=== PATIENT | female | born 1955 | race Caucasian/White ===

== ENCOUNTER → 2025-05-13 10:40 | Outpatient (REF) | payer MEDICARE, OTHER, SELFPAY | LOC: RAD 10:40 | PROVIDERS: ATTENDING PHYSICIAN Student in an Organized Health Care Education/Training Program; FAMILY PHYSICIAN Family Medicine | DX: R05.9 Cough, unspecified (principal) | CPT/HCPCS: 71046 ==

== ENCOUNTER → 2025-05-24 12:55 | Outpatient (REF) | payer MEDICARE, OTHER, SELFPAY | LOC: RAD 12:55 | PROVIDERS: ATTENDING PHYSICIAN Student in an Organized Health Care Education/Training Program | DX: R05.1 Acute cough (principal) | CPT/HCPCS: 71046 ==

== ENCOUNTER 2025-05-28 16:09 | Inpatient (IN) | payer MEDICARE, OTHER, SELFPAY ==
[2025-05-26] VITALS (9 sets, daily range): BP systolic 102–158; BP diastolic 61–127
[2025-05-26 13:03] LABS: Hematocrit 42.0 % (37.0-47.0); Hemoglobin 13.8 g/dL (12.0-16.0); Mean Corp Hgb Conc. 32.9 g/dL (33.0-37.0); Mean Corpuscular Volume 91.9 fL (81.0-99.0); Nucleated Red Blood Cells % 0 %; Platelet Count 236 10^3/uL (130-400); Red Cell Dist. Width 13.6 % (11.5-14.5)
[2025-05-26 13:19] LABS: ALT (SGPT) 497 U/L (0-35); AST (SGOT) 96 U/L (14-36); Albumin 4.5 g/dl (3.5-5.0); Alkaline Phosphatase 83 U/L (38-126); Blood Urea Nitrogen 32 mg/dl (7-17); Calcium 9.7 mg/dl (8.4-10.2); Carbon Dioxide 26 mmol/L (22-30); Chloride 107 mmol/L (98-107); Glucose 88 mg/dl (70-99); Lipase 338 U/L (23-300); Potassium 5.2 mmol/L (3.5-5.1); Sodium 139 mmol/L (135-145); Total Protein 7.3 g/dl (6.3-8.2); eGFR > 60.00
--- NOTE | 2025-05-26 14:40 | ED.GENMED ---
History of Present Illness
General
Chief Complaint: Abnormal Lab Value
Source: patient
Exam Limitations: none
Time Seen by Provider: 05/26/25 14:28
Nursing documentation reviewed up to this point in time: agreed with
History of Present Illness
History of Present Illness:
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 Her main complaint is that she has been having what she describes as
'attacks' where she has what sounds like bronchospasm where she feels short of breath, coughing/wheezing occasionally to the point that she will briefly pass out. She said she was seen by her primary doctor and was prescribed steroids x 2 packs as
well as antibiotics and had outpatient x-ray�the feeling was that she could potentially have bronchitis. She has not noticed any improvement in her symptoms with these treatments. She finished steroids 2 days ago and is still finishing up a second
antibiotic course. In addition to these attacks as above she reports that over the past 2 weeks she has been having pains in the epigastrium associated with nausea, hypersalivation and occasional dry heaves. She saw her primary doctor in follow-up
and had lab work drawn which showed that her LFTs had increased and ultimately was referred to the ER to be further evaluated.
Review of Systems
Review of Systems
All Other Systems: ROS reviewed and negative except as documented in HPI and ROS
Constitutional: Denies fever
EENT: Reports other (Hypersalivation); Denies sore throat or runny nose
Respiratory: Reports cough and trouble breathing
Cardiac: Denies chest pain
ABD/GI: Reports abdominal pain and nausea; Denies vomiting or constipated
: Denies flank pain
Musculoskeletal: Denies neck pain or back pain
Neurological: Denies dizzy or headache
Phy Exam
Physical Exam
Physical Exam:
General: Awake, alert, oriented x3; no acute distress
Head: Normocephalic, atraumatic
Eyes: Conjunctiva normal, sclera anicteric
Throat: Airway intact, handling secretions
Neck: Trachea midline, supple without meningismus
Lungs: Scattered expiratory wheezing, patient did have a coughing fit during lung auscultation
Heart: Regular rate and rhythm, no murmurs, gallops, or rubs
Abd: Soft, non distended, nontender
Neuro: No gross deficits
Extremities: No edema in extremities, equal pulses in all extremities
Scores
Heart Failure Risk
Heart Failure Risk Score: Not Applicable
Heart Score for Chest Pain Patients
STEMI patient?: Not applicable
Withdrawal Assessment of Alcohol
Withdrawal Assessment Completed?: Not applicable
Course
Orders/Labs/Results
Orders:
Orders
05/26/25 12:56
Complete Blood Count/With Diff Urgent
Comprehensive Metabolic Panel Urgent
Lipase Urgent
05/26/25 14:37
US Abdomen Complete/Upper Urgent
Comment:
Reason For Exam: epigastric pain, abnormal LFTs
05/26/25 14:47
Electrocardiogram (*1) Urgent
Reason for Study: Abdominal Pain
EKG- Treatment ONCE
05/26/25 15:00
Troponin I Urgent
Abnormal Lab Results
05/26/25
12:56
WBC 12.1 H 10^3/uL
(4.8-10.8)
MCHC 32.9 L g/dL
(33.0-37.0)
Abs Immat Gran (auto) 0.2 H 10^3/uL
(0-0.05)
Absolute Neuts (auto) 7.3 H 10^3/uL
(1.4-6.5)
Absolute Monos (auto) 1.1 H 10^3/uL
(0.1-0.6)
Immature Gran % 1.8 H %
(0-0.5)
Potassium 5.2 H mmol/L
(3.5-5.1)
BUN 32 H mg/dl
(7-17)
AST 96 H U/L
(14-36)
ALT 497 H U/L
(0-35)
Lipase 338 H U/L
(23-300)
05/26/25 12:56
05/26/25 12:56
Vital Signs
Initial and Last Documented VS:
Initial Vital Signs
Temp Pulse Resp BP Pulse Ox
36.9 C 71 18 158/98 98
05/26/25 12:49 05/26/25 12:49 05/26/25 12:49 05/26/25 12:49 05/26/25 12:49
Last Documented Vital Signs
Temp Pulse Resp BP Pulse Ox
36.9 C 58 20 127/87 100
05/26/25 12:49 05/26/25 15:15 05/26/25 15:15 05/26/25 14:51 05/26/25 14:52
MDM/Problems Addressed
Differential Diagnosis Includes:
Cough/shortness of breath: Asthma, bronchitis, pneumonia, bronchospasm or laryngeal spasm
Epigastric pain/nausea/abnormal LFTs: Cholelithiasis, cholecystitis, pancreatitis, gastritis
MDM/Problems Addressed:
70-year-old female presents with multiple complaints as above�has been dealing with coughing/bronchospasm which she says comes in fits/waves. Has also had some epigastric pain and recently discovered to have abnormal LFTs; associated nausea with
hypersalivation. Labs sent off including a CBC which shows a leukocytosis of 12.2. CMP shows elevated AST and ALT as well as marginally elevated lipase. Will plan to check upper abdominal ultrasound. Patient reports to chest x-rays in the past
week that were nondiagnostic�hold on repeat at this point; I did review chest x-ray from 05/24 which showed no acute abnormalities. She may have either cholelithiasis or cholecystitis versus GERD/gastritis--she may be having reflux-type symptoms
causing bronchospasm/laryngeal spasm or could potentially be having diaphragmatic irritation/spasm. Could also have significant bronchitis and abnormal LFTs with reflux symptoms related to recent heavy steroid use. Will monitor closely reassess
after the above.
Ultrasound shows normal gallbladder wall thickness, no dilation of the CBD, no clear gallstones. Reassessment patient still having epigastric pain and with abnormal LFTs concern potentially for choledocholithiasis. Will need LFTs trended may need
MRCP or GI consultation. Continues to have paroxysmal respiratory symptoms but I do suspect that these may improve with treating GI symptoms. Will admit for continued monitoring and evaluation. Discussed case with the hospitalist.
Acute Exacerbation and/or Progression of Chronic Illness:
Acutely hypertensive
Acute Exacerbation and/or Progression of Chronic Illness: HTN
*Radiology
Radiology exam reviewed: radiology read reviewed
*Pulse Oximetry
SaO2: 98
Oxygen Mode of Delivery: Room air
Patient hypoxic: no (98%)
*Critical Care Note
Total Time (30-74mins, 75-104mins- exclusive of procedures): Not Applicable
Data Reviewed
Source: patient
Patient Management
Discussion with other providers: Hospitalist (Discussed with hospitalist)
Escalation/DeEscalation of care consider admission/obs:
Admission indicated
ED Attending Note
-
Portions of this chart may have been created with voice recognition software.� Occasional wrong word or��sound alike� substitutions may have occurred due to the inherent limitations of voice recognition software.
Discharge Plan
Departure
Patient Disposition: Admit
Date of Disposition: 05/26/25
Time of Disposition: 15:50
Admit to doctor: Dulce
Presentation/result/management discussed w/ accepting MD/DO: Hospitalist
Discharge Problem:
Bronchospasm, Abnormal LFTs, Epigastric pain
Interventions
Interventions:
*Risk Screen - Suicide Last Done: 05/26/25 12:49
*General Assessment Last Done: 05/26/25 12:49
*Neglect/Abuse Screening Last Done: 05/26/25 12:49
*ED- Fall Risk Assessment Last Done: 05/26/25 12:49
*ED COVID-19 Vaccine History Last Done: 05/26/25 12:49
Discharge Date and Time
Print Language: NEPALI
[2025-05-26 15:46] LABS: Troponin I < 0.012 ng/ml
--- NOTE | 2025-05-26 17:02 | HPS.HSE ---
Family Physician
-
Family Physician:
Chief Complaint
-
Persistent coughing
History of Present Illness
70-year-old female no significant past medical history is presenting from home with complaints of attacks where coughing starts and then she is unable to to breathe at times. Patient feels like she will pass out after having coughing episodes.
Patient symptoms started 3 weeks ago had fever at home. Went to see primary doctor who thought patient had pneumonia and was prescribed antibiotics likely doxycycline and steroids. Patient with not much improvement in symptomology went back to see
again primary doctor was given additional steroids and breathing treatment. Patient returned to the primary doctor as patient with persistent episodes of coughing with intermittent spasms and unable to breathe out. Also states of hypersalivation
persistently. States the nausea but no vomiting. No diarrhea. Patient also had a chest x-ray done as outpatient. Patient states of soreness in the epigastric region sometimes radiate to bilateral sides. Denies any right upper quadrant
abdominal pain after having meals. Also feeling lightheaded at times. States she is feeling extremely weak. States of increasing hypersalivation and using 3-4 towels because of it. Unable to sleep at night. Patient went to see primary doctor
again and had repeat blood work as outpatient where she was found to have mild AST and ALT elevation was recommended coming to the ER.
Medical History
Past Medical History
Past Medical History: Reports None
Past Surgical History: Reports Other
Additional Past Surgical History:
Right kidney donation
Social History
Tobacco: Non-smoker
Alcohol: Occasional
Drug: None
Employment: Employed
Family History
Family History: Not pertinent
Allergies / Home Medications
Allergies reflects when Allergies were last updated in [employer]
Home Medications with original date entered in [employer]
Allergy/Medication List:
Allergies
Allergy/AdvReac Type Severity Reaction Status Date / Time
NKA - No Known Allergies Allergy Unknown Uncoded 05/26/25 12:53
Review of Systems
-
History Source: Patient
A 12 point ROS was completed and negative except as noted: Yes
Physical Exam
Vital Signs
Vital Signs
Temp Pulse Resp BP Pulse Ox
98.5 F 67 25 123/80 96
05/26/25 12:49 05/26/25 17:00 05/26/25 17:00 05/26/25 16:25 05/26/25 17:00
Physical Exam
General: Well Developed, Well Nourished and No Apparent Distress
HEENT: NormoCephalic, Moist mucous membranes and Atraumatic
Respiratory: Wheezes
Cardiac: S1/S2 and Regular Rhythm; No Murmur or Rub
GI: Soft, Non Tender, Non Distended and Normal Bowel Sounds; No Organomegaly
Rectal: Deferred by Provider
Musculoskeletal: No Clubbing, No Cyanosis and No Edema
Skin: No Rash
Neuro: Awake, Alert, Oriented, AO x 3, No Motor Deficits and Nonfocal/grossly intact
Psych: Calm
Laboratory Results
-
05/26/25 12:56
05/26/25 12:56
Laboratory Results
Total Bilirubin 0.7 mg/dl (0.2-1.3) 05/26/25 12:56
AST 96 U/L (14-36) H 05/26/25 12:56
ALT 497 U/L (0-35) H 05/26/25 12:56
Alkaline Phosphatase 83 U/L (38-126) 05/26/25 12:56
Troponin I < 0.012 ng/ml 05/26/25 15:00
Lipase 338 U/L (23-300) H 05/26/25 12:56
Data Reviewed
-
Ultrasound: Report Reviewed by me (Gallbladder physiologically distended with fluid and no shadowing calculi or wall thickening. No sonographic Chan sign was elicited with examination. Common duct is normal. Pancreas is partially obscured by
the bowel gas. Spleen is normal. No signs of hydronephrosis. Right kidney is absent. ) and Discussed with Patient
Lab Data: Labs Reviewed by me and Discussed with Patient
Impression/Plan
-
#Suspected bronchospasm/laryngeal spasm
Now much improvement with steroids as outpatient will hold off on further systemic steroids for now
Start patient on bronchodilators
Will ask pulmonary for input may require bronchoscopy
Check CT of the chest to assess for anatomical abnormality
Chest x-ray 05/24/2024 no acute cardiopulmonary process.
#Hypersalivation
#Suspected GERD
Start patient on PPI IV twice daily as with recent steroids and antibiotic course
Monitor for symptoms
Also start patient on IV fluids
Can consider anticholinergic medication if needed
#Transaminitis
Check hepatitis panel
Repeat labs in the morning
Possibility of elevation of liver enzymes due to recent steroids and antibiotic course
Ultrasound of the abdomen noted.
#Mild hyperkalemia
Trend BMP for now
#Leukocytosis likely secondary to steroids
Continue to trend CBC for now
If spikes fever then check COVID, UA, blood cultures
#Solitary kidney
Monitor creatinine
DVT prophylaxis-Lovenox
Full code
I spent a total of 80 minutes with the patient or on the floor. More than 50% of this time involved counseling and coordination of care.
[2025-05-26] MEDS: DUONEB 3 ML INH (19:40)
[2025-05-26] MEDS: LOVENOX 40 MG SC (20:40)
[2025-05-26] MEDS: PROTONIX IV 40 MG IV (20:41)
[2025-05-26] MEDS: NSS (PRESERVATIVE FREE) 10 ML IV (20:42)
[2025-05-26] MEDS: NSS 1000 IV (21:32)
[2025-05-27] MEDS: NSS 1000 IV (04:06)
[2025-05-27 07:02] VITALS: BP 120/84
[2025-05-27] MEDS: DUONEB 3 ML INH ×2 (07:55→11:16)
[2025-05-27] MEDS: PROTONIX IV 40 MG IV ×2 (08:08→20:39)
[2025-05-27] MEDS: NSS (PRESERVATIVE FREE) 10 ML IV ×2 (08:08→20:39)
[2025-05-27 08:28] LABS: Hematocrit 37.7 % (37.0-47.0); Hemoglobin 12.5 g/dL (12.0-16.0); Mean Corp Hgb Conc. 33.2 g/dL (33.0-37.0); Mean Corpuscular Volume 91.5 fL (81.0-99.0); Nucleated Red Blood Cells % 0 %; Platelet Count 204 10^3/uL (130-400); Red Cell Dist. Width 13.7 % (11.5-14.5)
[2025-05-27 08:52] LABS: ALT (SGPT) 316 U/L (0-35); AST (SGOT) 48 U/L (14-36); Albumin 3.6 g/dl (3.5-5.0); Alkaline Phosphatase 73 U/L (38-126); Blood Urea Nitrogen 33 mg/dl (7-17); Calcium 8.9 mg/dl (8.4-10.2); Carbon Dioxide 24 mmol/L (22-30); Chloride 110 mmol/L (98-107); Estimated Creatinine Clearance 63 ml/min; Glucose 91 mg/dl (70-99); Lipase 260 U/L (23-300); Magnesium 2.3 mg/dl (1.6-2.3); Potassium 4.6 mmol/L (3.5-5.1); Sodium 139 mmol/L (135-145); Total Protein 6.1 g/dl (6.3-8.2); eGFR > 60.00
[2025-05-27] MEDS: TESSALON PERLES 200 MG PO (09:46)
--- NOTE | 2025-05-27 11:36 | W.PN.HOSP.TC ---
Today's Communication/Plan
-
LFTs improved
Pulmonary input
Esophagogram ordered
Continue PPI IV
Assessment / Plan
Assessment / Plan
#Suspected bronchospasm/laryngeal spasm
Now much improvement with steroids as outpatient will hold off on further systemic steroids for now
Start patient on bronchodilators
Will ask pulmonary for input may require bronchoscopy
Check CT of the chest noted and no anatomical acute pathology noted
Magodeweymichelle Sanders can consider Robitussin with codeine if needed
Also speech evaluation to assess swallowing
#Hypersalivation
#Suspected GERD
Start patient on PPI IV twice daily as with recent steroids and antibiotic course
Monitor for symptoms
Also start patient on IV fluids
Can consider anticholinergic medication if needed as patient refused
Esophagogram ordered
#Transaminitis
Check hepatitis panel
Labs improving
Possibility of elevation of liver enzymes due to recent steroids and antibiotic course
Ultrasound of the abdomen noted.
#Mild hyperkalemia
Trend BMP for now
#Leukocytosis likely secondary to steroids
Continue to trend CBC for now
If spikes fever then check COVID, UA, blood cultures
#Solitary kidney
Monitor creatinine
DVT prophylaxis-Lovenox
Full code
Discussed with multiple family numbers at bedside
Anticipated Discharge: > 48 hours
Subjective/Interval History
-
Date of Service: May 27, 2025
States she slept well overnight
Remains with increased secretions and episodes of coughing leading to severe shortness of breath
Objective Data
-
Labs:
Laboratory Results
05/27/25
07:33
WBC 7.4
Hgb 12.5
Hct 37.7
Plt Count 204
Sodium 139
Potassium 4.6
Chloride 110 H
Carbon Dioxide 24
BUN 33 H
Creatinine 0.9
Glucose 91
Calcium 8.9
Total Bilirubin 0.6
AST 48 H
ALT 316 H
Alkaline Phosphatase 73
Vital Signs:
Vital Signs
Temp Pulse Resp BP Pulse Ox
97.8 F 61 16 120/84 97
05/27/25 07:02 05/27/25 11:18 05/27/25 11:18 05/27/25 07:02 05/27/25 11:18
Physical Exam
-
General: Well Developed and No Apparent Distress
HEENT: Normocephalic, Atraumatic and Moist Mucous Membranes
Respiratory: Clear to Auscultation
Cardiac: Regular Rhythm and S1/S2; Negative Murmur, Rub or Gallop
GI: Soft, Nontender, Nondistended and Normal Bowel Sounds; Negative Organomegaly
Rectal: Deferred by Provider
Musculoskeletal: No Clubbing, No Cyanosis and No Edema
Skin: Negative Rash
Neuro: Awake, Alert, Oriented, AO x 3, No Motor Deficits and Nonfocal/Grossly Intact
[2025-05-27 12:03] LABS: Hepatitis B Surface Antigen Negative (Negative)
--- NOTE | 2025-05-27 12:18 | CM ---
IA completed. Croft given and form placed on chart.Lives alone in multi-story home with 1 step at the entrance. Lives on the first floor.No hx of DME, SNF, HC. confirmed PCP, Rx and insurance. Denies any insecurities.
PCP: Hussein Brice
Rx: [facility]
Plan: Home with no needs
[2025-05-27 12:21] LABS: Hepatitis C Antibody Negative (Negative)
--- NOTE | 2025-05-27 13:30 | PTOTSP ---
Speech Therapy Evaluation:
Pt presents with functional oropharyngeal swallow at bedside. No predisposing/precipitating risk factors of dysphagia, however pt with increased risk of aspiration/obstruction given c/f laryngospasm vs bronchospasm while eating. Despite this, pt
reported that said events never occur during intake. Chest CT unremarkable, WBC WNL, pt afebrile, on room air, and without dysphagia hx.
Recommend:
1. Cautiously cont. regular solid and thin liquid diet
2. Medications as tolerated
3. Strict aspiration precautions
4. FACTORY MAINTENANCE TECHNICIAN to follow to monitor tolerance of diet and determine need for modifications
--- NOTE | 2025-05-27 14:59 | CON.PUL ---
Consultation
Consultation Request
Date/Time Consultation Requested: 05/27/2025
Date/Time Consultation Performed: 05/27/2025
Requesting Provider: Dr. Liu
Performing Provider: Dr. Emil Grant
Reason for Consultation: Cough/shortness of breath
Medical History
-
History of Present Illness:
70-year-old woman without significant reported past medical history presented from home complaining of severe coughing. Patient developed cough paroxysms with subsequent shortness of breath and presyncopal symptoms.
Patient states that symptoms started about 3 weeks ago where she had a fever and upper respiratory symptoms.
Patient was treated by primary care with prednisone and doxycycline. She also was treated with nebulizer therapy with partial improvement.
Patient does report hypersalivation which is persistent.
Patient does not have persistent cough. She developed random episode of upper abdominal tightness with subsequent cough and shortness of breath.
In between no significant symptoms.
Feels better after she eats.
Denies swallowing problems.
Denies sore throat.
Denies any fevers but
Denies headache.
Denies blurry vision.
Underwent CT chest in the emergency room that showed clear lungs.
She denies prior history of lung problems per
Denies swallowing problems.
She is a never smoker.
Past Medical History
Past Medical History: None
Social History
Tobacco: Non-smoker
Alcohol: None
Drug: None
Employment: Employed
Family History
Family History: Reviewed & Not Pertinent
Allergies / Home Medications
Allergies
Allergy/AdvReac Type Severity Reaction Status Date / Time
No Known Allergies Allergy Verified 05/26/25 19:29
Home Medications
�Medication �Instructions �Recorded �Confirmed �Last Taken �Type
No Meds [No Current Medications] 05/27/25 05/27/25 Unknown History
Review of Systems
-
History Source: Patient
All other systems: Negative unless noted
Vitals / Labs / Diagnostic Testing
Vital Signs
Temp Pulse Resp BP Pulse Ox
97.8 F 61 16 120/84 97
05/27/25 07:02 05/27/25 11:18 05/27/25 11:18 05/27/25 07:02 05/27/25 11:18
Lab Data
05/27/25 07:33
05/27/25 07:33
Diagnostic Testing:
Physical Exam
-
HEENT: Normocephalic
Cardiovascular: S1/S2
Respiratory: Non-Labored Respirations
GI: Soft and Non Distended
Neurology: Awake, AO x 3 and No Motor Deficits
Skin: Warm
General: Comfortable
Assessment
-
70-year-old woman without past medical history, non-smoker. Reports 3 weeks of worsening cough, shortness of breath after cough paroxysms, hypersalivation. Cough was interfering with lifestyle which prompted her to come to the emergency room.
Partial response to prednisone and antibiotics.
Subacute cough-suspect postinfectious.
Cannot rule out reactive airways.
CT chest: No parenchymal abnormalities. Clear large airways. Neck structures image normal.
Abnormal LFTs
No acute intra abdominal abnormality. Status post right nephrectomy.
Leukocytosis likely due to steroids
History of kidney donation
Never smoker
Assessment and plan:
Unclear etiology of symptoms.
Not compatible with pulmonary disease at this point.
Clear lung exam.
No evidence for reactive airways.
CT of the chest without parenchymal lung abnormalities and clear large airways.
No stridor on exam.
Not bronchospastic on exam
Agree with DuoNebs 4 times a day-for now.
Continue antitussive.
No indication for inhaled or systemic corticosteroids at this point.
-
With hypersalivation, upper abdominal discomfort symptoms may be related to GI illness.
Agree with PPI
Unclear etiology of hypersalivation. Oropharynx examination without obvious abnormalities.
Agree with esophagogram.
Speech pathology evaluated patient-no concerns.
GI evaluation may be necessary.
-
Will follow
[2025-05-27] MEDS: TYLENOL 650 MG PO (15:10)
[2025-05-27] MEDS: ZOFRAN 4 MG IV ×2 (15:10→22:43)
[2025-05-27 15:11] VITALS: BP 124/63
[2025-05-27] MEDS: TESSALON PERLES PO ×2 (16:46→22:42)
--- NOTE | 2025-05-27 17:58 | PTCARENOTE ---
Assumed care of pt from previous nurse. pt denies pain. continues with episodes of 'breathlessness' lasting a few seconds, nausea and excessive salivary secretions. Pt call warner is within reach, pt rings lit. will cont to monitor.
[2025-05-27] MEDS: LOVENOX 40 MG SC (18:13)
[2025-05-27 23:07] VITALS: BP 145/98
[2025-05-28 07:20] VITALS: BP 131/73
[2025-05-28] MEDS: PROTONIX IV 40 MG IV ×2 (08:17→21:39)
[2025-05-28] MEDS: TESSALON PERLES 200 MG PO ×2 (08:17→22:31)
[2025-05-28] MEDS: NSS (PRESERVATIVE FREE) 10 ML IV ×2 (08:17→21:39)
[2025-05-28] MEDS: NSS (PRESERVATIVE FREE) IV (08:33)
[2025-05-28 08:48] LABS: ALT (SGPT) 273 U/L (0-35); AST (SGOT) 38 U/L (14-36); Albumin 4.0 g/dl (3.5-5.0); Alkaline Phosphatase 76 U/L (38-126); Blood Urea Nitrogen 23 mg/dl (7-17); Calcium 9.5 mg/dl (8.4-10.2); Carbon Dioxide 28 mmol/L (22-30); Chloride 106 mmol/L (98-107); Estimated Creatinine Clearance 63 ml/min; Glucose 94 mg/dl (70-99); Potassium 4.9 mmol/L (3.5-5.1); Sodium 138 mmol/L (135-145); Total Protein 6.8 g/dl (6.3-8.2); eGFR > 60.00
--- NOTE | 2025-05-28 12:34 | W.PN.HOSP.TC ---
Today's Communication/Plan
-
Will ask GI for input
PPI IV twice daily
IV fluids
Assessment / Plan
Assessment / Plan
#Hypersalivation unclear etiology
#Suspected GERD
#Chronic cough due to above
Start patient on PPI IV twice daily as with recent steroids and antibiotic course
Monitor for symptoms
Also start patient on IV fluids
Can consider anticholinergic medication if needed as patient refused
Esophagogram with Transient brief low-level tertiary contraction. Otherwise, normal peristalsis. Trace transient gastroesophageal reflux. No hiatal hernia, stricture, or obstruction. No radiographic evidence of esophagitis.
Will ask GI for input
#Suspected bronchospasm/laryngeal spasm possibly due to severe GERD
Now much improvement with steroids as outpatient will hold off on further systemic steroids for now
Check CT of the chest noted and no anatomical acute pathology noted
Daxa Sanders can consider Robitussin with codeine if needed
Speech okay for regular diet
Appreciate pulm input
#Transaminitis
Hepatitis panel negative
Check for tickborne panel
Possibility of elevation of liver enzymes due to recent steroids and antibiotic course
Ultrasound of the abdomen noted.
#Mild hyperkalemia
Trend BMP for now
#Leukocytosis likely secondary to steroids
Continue to trend CBC for now
Resolved
If spikes fever then check COVID, UA, blood cultures
#Solitary kidney
Monitor creatinine
DVT prophylaxis-Lovenox
Full code
Discussed with family member at bedside in detail
Anticipated Discharge: 24 - 48 hours
Subjective/Interval History
-
Date of Service: May 28, 2025
States remains with coughing episodes
States remains with hypersalivation
Objective Data
-
Labs:
Laboratory Results
05/28/25
07:44
Sodium 138
Potassium 4.9
Chloride 106
Carbon Dioxide 28
BUN 23 H
Creatinine 0.9
Glucose 94
Calcium 9.5
Total Bilirubin 0.7
AST 38 H
ALT 273 H
Alkaline Phosphatase 76
Vital Signs:
Vital Signs
Temp Pulse Resp BP Pulse Ox
97.4 F 49 18 131/73 98
05/28/25 07:20 05/28/25 07:20 05/28/25 07:20 05/28/25 07:20 05/28/25 07:20
I&O
05/27/25 05/28/25 05/29/25
06:59 06:59 06:59
Intake Total 820 / 820
Balance 820 / 820
--- NOTE | 2025-05-28 13:19 | W.PN.PUL3 ---
Today's Communication / Plan
-
Continue PPI for GERD
Okay to continue nebulizer for now but low threshold to discontinue
No indication for inhalers or systemic corticosteroids
Agree with GI evaluation
Assessment
-
70-year-old woman without past medical history, non-smoker. Reports 3 weeks of worsening cough, shortness of breath after cough paroxysms, hypersalivation. Cough was interfering with lifestyle which prompted her to come to the emergency room.
Partial response to prednisone and antibiotics.
Subacute cough-suspect postinfectious.
Sialorrhea-unclear etiology
Cannot rule out reactive airways.
CT chest: No parenchymal abnormalities. Clear large airways. Neck structures image normal.
Abnormal LFTs
No acute intra abdominal abnormality. Status post right nephrectomy.
Leukocytosis likely due to steroids
History of kidney donation
Never smoker
Assessment and plan:
Unclear etiology of symptoms.
Not compatible with pulmonary disease at this point.
Clear lung exam.
No evidence for reactive airways.
CT of the chest without parenchymal lung abnormalities and clear large airways.
No stridor on exam.
Not bronchospastic on exam
-
Agree with DuoNebs 4 times a day-for now low threshold to discontinue if there is no ongoing improvement.
Continue antitussive.
No indication for inhaled or systemic corticosteroids at this point.
-
With sialorrhea, upper abdominal discomfort symptoms may be related to GI illness.
Agree with PPI
Oropharynx examination unremarkable.
Esophagram: Mild acid reflux. No obstruction
Speech pathology evaluated patient-no concerns.
GI has been consulted for evaluation.
-
Pulmonary will continue to follow briefly.
Subjective Data
-
Date of Service:
Date of Service: May 28, 2025
Chief Complaint: Pulmonary Follow Up (? Cough/dyspnea)
Subjective:
At rest she denies any symptoms
No significant phlegm production
Denies shortness of breath
Denies wheezing
Review of Systems
General: Fever (n)
Cardiopulmonary: Dyspnea (none at rest)
GI: Abdominal Pain (n)
Neuro: Headache (n)
Objective Data
Data Reviewed
Vital Signs / I&O / Oxygen:
Vital Signs
Temp Pulse Resp BP Pulse Ox
97.4 F 49 18 131/73 98
05/28/25 07:20 05/28/25 07:20 05/28/25 07:20 05/28/25 07:20 05/28/25 07:20
Intake and Output
05/27/25 05/28/25 05/29/25
06:59 06:59 06:59
Intake Total 820 / 820
Balance 820 / 820
SaO2 98
Physical Exam
General: Comfortable
HEENT: Normocephalic
Cardiovascular: S1-S2
Respiratory: Clear and Non-Labored Respirations
GI: Soft and Distended
Neurology: Awake
Skin: Warm
Labs/Micro/Reports
Lab Data
05/27/25 07:33
05/28/25 07:44
[2025-05-28] MEDS: NSS 1000 IV (13:38)
--- NOTE | 2025-05-28 14:42 | CON.GI ---
Addendum entered and electronically signed by Ze Kim MD 05/28/25 20:39:
I personally performed a history and physical exam of the patient and discussed management with the resident. I reviewed the resident's note and agree with the documented findings and plan of care HPI/CC.
This is a 70-year-old female no significant past medical history coming in with episodes of hypersalivation, epigastric discomfort and coughing spasms. This all started 3 weeks ago initially with fever and cough and she was given steroids and
Z-Ministerio. After completing, she started having these episodes where she would have a small cough with spasm where she feels that there is blue in her bronchial tubes and would hurt in her epigastric area and she would have severe hypersalivation. She
was then given Levaquin, steroids, and inhaler and the hypersalivation and these episodes became more frequent. She initially had 2-3 episodes an hour are having up to 20 a day. She finds when she laughs or talks these episodes get worse and they
are better with food. She has similar episode 30 years ago when she had a parasite in the [facility] from eating pork.
She was also found incidentally to have abnormal LFTs with AST 96 now down to 38 and ALT 497 now down to 273.
I discussed with pulmonology and patient is optimized from their standpoint to have an endoscopy but my concern is with her hypersalivation she may be high risk of aspiration. I reviewed and she did have an esophagram done which showed brief
low-level tertiary contractions otherwise normal peristalsis and trace transient reflux. No hiatal hernia, stricture, obstruction. I will need to review with anesthesia regarding possible upper endoscopy. She also underwent a CT chest which was
negative, abdominal ultrasound which showed no abdominal process identified. Gallbladder physiologic distended with fluid with no stones or no wall thickening.
In the interim, we will treat for reflux with Protonix 40 mg twice a day and I will also add on Pepcid.
To me her symptoms are not clearly GI in etiology. Reflux can cause this but there is minimal reflux seen on the esophagram.
Given her parasite history, testing has been ordered to follow this up.
I suspect her abnormal LFTs are drug-induced from antibiotics. Hepatitis serology is negative.
Further recommendations to follow.
Original Note:
Consultation
-
Date/Time Consultation Requested: 05/28/25 12:34
Date/Time Consultation Performed: 05/28/25 13:45
Requesting Provider: Ron Liu MD
Performing Provider: William Antunez DO (Resident); Ze Kim MD
Reason for Consultation: Sialorrhea, Epigastric Discomfort, Coughing Paroxysms
Medical History
Chief Complaint / HPI
Chief Complaint: Sialorrhea and Epigastric Discomfort
History of Present Illness:
Trish Bae is a 70F with no significant PMHx and on no chronic medications who presented to the emergency department from home with hypersalivation, episodic epigastric discomfort, and coughing paroxysms. Patient states that 3 weeks ago she had
a upper respiratory illness with fever and cough. She visited her PCP who started her on antibiotics. As the cough continued to worsen, PCP ordered a chest x-ray which was negative, antibiotics were changed, and patient was started on prednisone
and nebulizer therapy with improvement in upper respiratory symptoms. Approximately 2 weeks ago, towards the end of the URI, the patient began to have sialorrhea associated with episodic epigastric discomfort that lasts seconds at a time at which
point she will cough/regurgitate some saliva into a towel. Patient states that initially she was having 2-3 episodes per day however frequency has been progressively worsening, and is now up to 20 times a day. After these episodes, patient will
have to spit into a towel and has been using multiple towels per day. Patient states that these episodes are often alleviated by eating and provocated by laughing. She denies symptoms of heartburn, sour/metallic taste in the mouth, sore throat,
globus sensation, weight loss, change in stool caliber, change in stool color, urinary symptoms, dysphagia to solids or liquids.
Interestingly, the patient noted 1 prior episode of similar symptoms in the past. She states that 30 years ago, while she was in [place] she picked up a parasite from eating pork. At that time she had sialorrhea that was almost exactly similar to
these episodes. However, at that time the patient did not have this episodic epigastric discomfort. Patient endorses being worked up and treated at that time but does not remember the diagnosis or name of treatment.
Additional to the above history, patient was recently seen by her PCP who noted elevated liver enzymes on outpatient lab work, which is what prompted her ED visit 2 days ago.
ED Course
Upon presentation to the emergency department, patient was AFVSS with scattered expiratory wheezes. WBC count was 12.1, BUN was mildly elevated at 32 with a creatinine of 0.8. AST 96, ALT 497, lipase 318, normal bilirubin/alk phos. BMI 28.9.
Chest x-ray was negative. Abdominal ultrasound was negative other than physiologic distention of the gallbladder.
Hospital Course
Patient was initially admitted for pulmonary workup of suspected bronchospasm/laryngeal spasm, chest CT did not find any significant acute abnormalities. Patient was started on bronchodilators and Tessalon Perles. Considering a gastrointestinal
process, patient was started on IV pantoprazole 40 mg BID. Biphasic barium swallow/esophagram was ordered which showed transient low level tertiary contraction, trace transient CARMEN, and no radiographic evidence of esophagitis.
At the time of my interview, patient is resting comfortably in bed with her daughter at the bedside. She notes no improvement in sialorrhea or paroxysmal epigastric discomfort/cough episodes. I was able to witness 2 of these episodes during my
interview/examination. 1 instance was provocated by laughter, immediately after which the patient started to have epigastric discomfort and had a dry cough that lasted approximately 10 seconds. After the episode the patient spit up clear thin
liquid into a towel. This liquid was not particularly discolored.
Past Medical History
Past Medical History: None
Past Surgical History: Other (R nephrectomy (donation))
Social History
Tobacco: Non-Smoker
Alcohol: None
Drug: None
Family History
Family History: Reviewed & Not Pertinent and Other (Father diagnosed with colon cancer at 87 years old; COPD secondary to tobacco use.)
Allergies / Home Medications
Allergy/AdvReac Type Severity Reaction Status Date / Time
No Known Allergies Allergy Verified 05/26/25 19:29
�Medication �Instructions �Recorded
No Meds [No Current Medications] 05/27/25
Review of Systems
-
History Source: Patient
All other systems: A 12 pt ROS was Negative except as stated above in HPI
Vital Signs
Temp Pulse Resp BP Pulse Ox
97.4 F 49 18 131/73 98
05/28/25 07:20 05/28/25 07:20 05/28/25 07:20 05/28/25 07:20 05/28/25 07:20
Physical Exam
Exam
General: Well Developed, Well Nourished and No Apparent Distress
HEENT: Normocephalic, Anicteric, Moist Mucous Membranes and Other (Posterior oropharynx is patent, no oral lesions.)
Respiratory: Clear
Cardiac: S1/S2
GI: Soft, Non Distended, Normal Bowel Sounds and Tender (Mildly tender to palpation in the lower abdomen.)
Skin: Warm
Neuro: Awake
Psych: Calm
Results
WBC 7.4 10^3/uL (4.8-10.8) 05/27/25 07:33
Hgb 12.5 g/dL (12.0-16.0) 05/27/25 07:33
Hct 37.7 % (37.0-47.0) 05/27/25 07:33
MCV 91.5 fL (81.0-99.0) 05/27/25 07:33
Plt Count 204 10^3/uL (130-400) 05/27/25 07:33
Absolute Neuts (auto) 3.7 10^3/uL (1.4-6.5) 05/27/25 07:33
Sodium 138 mmol/L (135-145) 05/28/25 07:44
Potassium 4.9 mmol/L (3.5-5.1) 05/28/25 07:44
Chloride 106 mmol/L (98-107) 05/28/25 07:44
Carbon Dioxide 28 mmol/L (22-30) 05/28/25 07:44
BUN 23 mg/dl (7-17) H 05/28/25 07:44
Creatinine 0.9 mg/dL (0.6-1.0) 05/28/25 07:44
Calcium 9.5 mg/dl (8.4-10.2) 05/28/25 07:44
Total Bilirubin 0.7 mg/dl (0.2-1.3) 05/28/25 07:44
AST 38 U/L (14-36) H 05/28/25 07:44
ALT 273 U/L (0-35) H 05/28/25 07:44
Alkaline Phosphatase 76 U/L (38-126) 05/28/25 07:44
Lipase 260 U/L (23-300) 05/27/25 07:33
Hepatitis A IgM Ab Negative (Negative) 05/27/25 07:33
Hep B Core Total Ab Negative (Negative) 05/27/25 07:33
Hepatitis C Antibody Negative (Negative) 05/27/25 07:33
Diagnostic Image Results:
CXR (05/24): No acute cardiopulmonary process.
Abdomen ultrasound (05/26): No acute intra-abdominal process, post right nephrectomy, physiologically distended gallbladder.
CT chest (05/27): No significant acute abnormality.
Biphasic barium swallow/esophagram (05/28): Transient brief low level tertiary contraction. Otherwise normal peristalsis. Trace transient gastroesophageal reflux. No hiatal hernia, stricture, or obstruction. No radiographic evidence of esophagitis.
Assessment / Plan
-
Trish Bae is a 70F with no significant past medical history other than a recent URI 3 weeks ago treated with antibiotics, prednisone, and nebulizer treatment, who presented with 2 weeks of sialorrhea, episodic epigastric discomfort, and
coughing paroxysms that have progressively worsened to up to 20 episodes per day. Pulmonary workup was mostly benign, thus we were consulted to workup possible gastrointestinal etiologies. The mechanism of the patient's current condition is
unclear, however, she would benefit from additional GI workup. DDx includes esophagitis with pill esophagitis a possible culprit in the setting of the patient's completed course of doxycycline around the time of onset of her current symptoms. Other
causes of esophagitis are also possible, however patient denies dysphagia. We will plan for endoscopy on Saturday (might be possible to do outpatient if episodes improve). If the work up is negative, can consider outpatient 24h-pH monitoring to r/o
GERD. Interestingly, the patient mentioned her sialorrheic symptoms are similar to an episode 30 years ago when she had a parasitic infection from pork in [place]. Although not likely, could consider the possibility that there may have been a
reactivation of a dormant parasite in the setting of prednisone use. Although we do not see hypereosinophilia, it is possible recent steroids may have blunted immune response. Blood parasite levels (per primary) are pending, but will order stool ova
and parasites as well.
#Sialorrhea of unclear etiology
#Episodic Epigastric Discomfort
#Coughing Paroxysms
#Leukocytosis POA (resolved)
#Transaminitis
#Distant History of Parasitic Infection
-Stool Ova/Parasites
-Plan for EGD on Saturday. Possible to do outpatient EGD if symptoms improve and patient discharged over the weekend.
-If workup is negative, consider 24h pH monitoring in the outpatient setting.
-Viral hepatitis labs negative, but can consider autoimmune hepatitis labs in the outpatient setting (transaminitis improving).
Data Reviewed
-
Radiology: Image Personally Visualized and interpreted, Report Reviewed by me and Discussed with Patient
CT Scan: Image Personally Visualized and interpreted, Report Reviewed by me and Discussed with Patient
Ultrasound: Report Reviewed by me and Discussed with Patient
-
-
Thank you for consultation and allowing me to participate in the patient's care. Please call the personal injury specialist GI physician during the after hours with any questions or concerns.
--- NOTE | 2025-05-28 14:50 | PTCARENOTE ---
report given to Radha. preparing for d/c to [facility]
[2025-05-28 15:15] VITALS: BP 131/65
--- NOTE | 2025-05-28 15:54 | CM ---
Home no needs
Plan; Home no needs.
[2025-05-28] MEDS: TESSALON PERLES PO (17:05)
[2025-05-28] MEDS: ZOFRAN 4 MG IV (17:07)
[2025-05-28] MEDS: LOVENOX 40 MG SC (17:07)
[2025-05-28] MEDS: PEPCID 40 MG PO (22:31)
[2025-05-28 23:23] VITALS: BP 126/76
--- NOTE | 2025-05-29 00:14 | PTCARENOTE ---
05/28/25: Approx 1999: Patient observed to have brief episode of shortness of breath at rest. Onset was sudden and it resolved spontaneously. No signs of respiratory distress observed at time of assessment post episode. Patient denies chest pain,
dizziness, palpitations. SOB episodes are occasionally occurring with unknown cause. Per interdisciplinary team, suspected GI related etiology to patient condition. Lung sounds clear to auscultation bilaterally, equal chest rise, no accessory muscle
use, no cyanosis, VS WNL. Pt observed resting comfortably upon time of assessment. Respiratory team examined.
[2025-05-29 07:34] VITALS: BP 125/74
[2025-05-29 08:25] LABS: ALT (SGPT) 212 U/L (0-35); AST (SGOT) 33 U/L (14-36); Albumin 3.9 g/dl (3.5-5.0); Alkaline Phosphatase 75 U/L (38-126); Blood Urea Nitrogen 20 mg/dl (7-17); Calcium 9.2 mg/dl (8.4-10.2); Carbon Dioxide 24 mmol/L (22-30); Chloride 108 mmol/L (98-107); Estimated Creatinine Clearance 71 ml/min; Glucose 93 mg/dl (70-99); Potassium 4.4 mmol/L (3.5-5.1); Sodium 138 mmol/L (135-145); Total Protein 6.6 g/dl (6.3-8.2); eGFR > 60.00
[2025-05-29] MEDS: PROTONIX IV 40 MG IV ×2 (08:42→20:33)
[2025-05-29] MEDS: TESSALON PERLES 200 MG PO ×3 (08:42→22:19)
[2025-05-29] MEDS: NSS (PRESERVATIVE FREE) 10 ML IV ×2 (08:42→20:32)
[2025-05-29] MEDS: NSS (PRESERVATIVE FREE) IV (09:40)
[2025-05-29] MEDS: OMNIPAQUE 50 ML PO (10:31)
--- NOTE | 2025-05-29 10:59 | W.PN.GI.CBS2 ---
Today's Communication / Plan
-
eso mano/pH outpatient; CT; ENT; GI signing off
Assessment / Plan
-
70-year-old female no significant past medical history coming in with episodes of hypersalivation, epigastric discomfort and coughing spasms. This all started 3 weeks ago initially with fever and cough and she was given steroids and Z-Ministerio. After
completing, she started having these episodes where she would have a small cough with spasm where she feels that there is blue in her bronchial tubes and would hurt in her epigastric area and she would have severe hypersalivation. She was then
given Levaquin, steroids, and inhaler and the hypersalivation and these episodes became more frequent. She initially had 2-3 episodes an hour are having up to 20 a day. She finds when she laughs or talks these episodes get worse and they are
better with food. She has similar episode 30 years ago when she had a parasite in the [facility] from eating pork.
She was also found incidentally to have abnormal LFTs with AST 96 now down to 38 and ALT 497 now down to 273.
I discussed with pulmonology and patient is optimized from their standpoint to have an endoscopy but my concern is with her hypersalivation she may be high risk of aspiration. I d/w anesthesia patient would need to be intubated for the procedure.
Given minimal esophagram findings (brief low-level tertiary contractions otherwise normal peristalsis and trace transient reflux) do not think high yield and risks outweigh benefits.
Continue Protonix 40 mg twice a day and Pepcid.
If no etiology found recommend esophageal mano/pH testing I sent a msg to my office to reach out to her to set this up to evaluate for reflux.
Given her parasite history, testing has been ordered to follow this up.
I suspect her abnormal LFTs are drug-induced from antibiotics. Hepatitis serology is negative. Trending down.
D/w Dr. Liu plan for further imaging (head, abd/pelvis) and to reach out to ENT.
D/w patient these episodes may require outpatient evaluation.
GI will sign off at this time pls call with ?s/issues/changes in status.
Subjective
Subjective
Date of Service: May 29, 2025
Still with episodes
Objective
Data Reviewed
Laboratory Data:
Laboratory Results
05/27/25 07:33
05/29/25 06:35
Laboratory Results
Magnesium 2.3 mg/dl (1.6-2.3) 05/27/25 07:33
Total Bilirubin 0.7 mg/dl (0.2-1.3) 05/29/25 06:35
AST 33 U/L (14-36) 05/29/25 06:35
ALT 212 U/L (0-35) H 05/29/25 06:35
Alkaline Phosphatase 75 U/L (38-126) 05/29/25 06:35
Lipase 260 U/L (23-300) 05/27/25 07:33
Vital Signs and I&O:
Vital Signs
Temp Pulse Resp BP Pulse Ox
97.6 F 50 16 125/74 99
05/29/25 07:34 05/29/25 07:34 05/29/25 07:34 05/29/25 07:34 05/29/25 07:34
I&O
05/28/25 05/29/25 05/30/25
06:59 06:59 06:59
Intake Total 820 / 820 220 / 1460 1240 / 1240
Balance 820 / 820 220 / 1460 1240 / 1240
Physical Exam
Physical Exam
GI: Non Distended and Non Tender
Neuro: Other (sitting comfortably)
--- NOTE | 2025-05-29 11:53 | W.PN.HOSP.TC ---
Today's Communication/Plan
-
Appreciate ENT input
monitor o2 status
CT head/abd/pelvis pending
Assessment / Plan
Assessment / Plan
#Hypersalivation unclear etiology
#Suspected GERD
#Chronic cough due to above
Start patient on PPI IV twice daily as with recent steroids and antibiotic course
Monitor for symptoms
Tolerating diet per DC further fluids
Can start Robinul
Esophagogram with Transient brief low-level tertiary contraction. Otherwise, normal peristalsis. Trace transient gastroesophageal reflux. No hiatal hernia, stricture, or obstruction. No radiographic evidence of esophagitis.
Pepcid added. Patient stated he was taking Carafate as prescribed by PCP in the past which did not help
?Upper airway inflammation. However to complete workup will ask for further input from ENT and appreciate any assistance.
Tickborne illness workup ongoing. Blood parasite was negative
Will complete neurological workup with CT head
Also check CT abdomen pelvis to assess for any abdominal pathology
GI to also coordinate outpatient esophageal manometry/pH testing as outpatient.
#Suspected bronchospasm/laryngeal spasm possibly due to severe GERD
Now much improvement with steroids as outpatient will hold off on further systemic steroids for now
Check CT of the chest noted and no anatomical acute pathology noted
Daxa Sanders can consider Robitussin with codeine if needed
Speech okay for regular diet
Appreciate pulm input
#Transaminitis
Hepatitis panel negative
Possibility of elevation of liver enzymes due to recent steroids and antibiotic course
Ultrasound of the abdomen noted.
#Mild hyperkalemia
resolved.
#Leukocytosis likely secondary to steroids
Continue to trend CBC for now
Resolved
If spikes fever then check COVID, UA, blood cultures
#Solitary kidney
Monitor creatinine
DVT prophylaxis-Lovenox
Full code
Anticipated Discharge: Within 24 hours
Subjective/Interval History
-
Date of Service: May 29, 2025
States of increasing salivation
States of increasing coughing episode
Able to speak in complete sentences
States send episode of coughing with unable to breathe improves after eating and worse with talking or laughing
Is able to tolerate diet
Vital signs oxygen stable
Objective Data
-
Labs:
Laboratory Results
05/29/25
06:35
Sodium 138
Potassium 4.4
Chloride 108 H
Carbon Dioxide 24
BUN 20 H
Creatinine 0.8
Glucose 93
Calcium 9.2
Total Bilirubin 0.7
AST 33
ALT 212 H
Alkaline Phosphatase 75
Vital Signs:
Vital Signs
Temp Pulse Resp BP Pulse Ox
97.6 F 50 16 125/74 99
05/29/25 07:34 05/29/25 07:34 05/29/25 07:34 05/29/25 07:34 05/29/25 07:34
I&O
05/28/25 05/29/25 05/30/25
06:59 06:59 06:59
Intake Total 820 / 820 220 / 1460 1240 / 1240
Balance 820 / 820 220 / 1460 1240 / 1240
Physical Exam
-
General: Well Developed and No Apparent Distress
HEENT: Normocephalic, Atraumatic and Moist Mucous Membranes
Respiratory: Clear to Auscultation
Cardiac: Regular Rhythm and S1/S2; Negative Murmur, Rub or Gallop
GI: Soft, Nontender, Nondistended and Normal Bowel Sounds; Negative Organomegaly
Rectal: Deferred by Provider
Musculoskeletal: No Clubbing, No Cyanosis and No Edema
Skin: Negative Rash
Neuro: Awake, Alert, Oriented, AO x 3, No Motor Deficits and Nonfocal/Grossly Intact
Data Reviewed
-
Total Time Spent with Patient (in minutes): 55
--- NOTE | 2025-05-29 12:19 | W.PN.PUL3 ---
Addendum entered and electronically signed by Caroline Plunkett DO 05/29/25 14:49:
Total time spent on this consultation/encounter __45__ minutes which includes review of history, physical exam, medications, laboratory data, personal review of imaging, extensive review of outpatient records, discussion with care team and
respiratory therapy.
Original Note:
Today's Communication / Plan
-
Stable on RA, no acute lung disease thus far
Salivation ongoing, HCT negative
Add atropine SL drops PRN
Await GI and ENT evals
No further input from our standpoint, we will sign off at this time, please call with questions
Assessment
-
70-year-old woman without past medical history, non-smoker. Reports 3 weeks of worsening cough, shortness of breath after cough paroxysms, hypersalivation. Cough was interfering with lifestyle which prompted her to come to the emergency room.
Partial response to prednisone and antibiotics.
Subacute cough-suspect postinfectious.
Sialorrhea-unclear etiology
Cannot rule out reactive airways.
CT chest: No parenchymal abnormalities. Clear large airways. Neck structures image normal.
Abnormal LFTs
No acute intra abdominal abnormality. Status post right nephrectomy.
Leukocytosis likely due to steroids
History of kidney donation
Never smoker
Assessment and plan:
Unclear etiology of symptoms.
Not compatible with pulmonary disease at this point.
Clear lung exam. Stable on RA
No evidence for reactive airways.
CT of the chest without parenchymal lung abnormalities and clear large airways.
No stridor on exam.
Not bronchospastic on exam
We discussed risk for aspiration but otherwise no obvious pulmonary disease
Speech following
-
Agree with Blanquita 4 times a day-for now low threshold to discontinue if there is no ongoing improvement.
Continue antitussive.
No indication for inhaled or systemic corticosteroids at this point.
-
With sialorrhea, upper abdominal discomfort symptoms may be related to GI illness.
Agree with PPI
Can try atropine drops, PRN
Agree with ENT eval
Oropharynx examination unremarkable.
Esophagram: Mild acid reflux. No obstruction
Speech pathology evaluated patient-no concerns.
GI has been consulted for evaluation.
-
CTH negative thus far
Await further ENT input
We can see as needed at this point
Subjective Data
-
Date of Service:
Date of Service: May 29, 2025
Chief Complaint: Pulmonary Follow Up (? Cough/dyspnea)
Subjective:
Still having complaints of excessive salivation
Remains stable on RA
Objective Data
Data Reviewed
Vital Signs / I&O / Oxygen:
Vital Signs
Temp Pulse Resp BP Pulse Ox
97.6 F 50 16 125/74 99
05/29/25 07:34 05/29/25 07:34 05/29/25 07:34 05/29/25 07:34 05/29/25 07:34
Intake and Output
05/28/25 05/29/25 05/30/25
06:59 06:59 06:59
Intake Total 820 / 820 220 / 1460 1240 / 1240
Balance 820 / 820 220 / 1460 1240 / 1240
SaO2 99
Physical Exam
General: Comfortable and Other (NAD)
HEENT: Normocephalic, Anicteric and Moist Mucous Membranes
Cardiovascular: S1-S2 and Regular Rhythm
Respiratory: Clear and Non-Labored Respirations
GI: Soft, Distended and Non Tender
Neurology: Awake, Alert, Oriented and No Motor Deficits
Skin: Warm, Dry and Good Color
Labs/Micro/Reports
Lab Data
05/27/25 07:33
05/29/25 06:35
Microbiology
05/28/25 23:15 Feces/Stool Cryptosporidium/Giardia - Final
Negative for Cryptosporidium and/or Giardia Lamblia
antigens.
05/28/25 13:10 Blood/Venous Blood Parasites Smear - Final
[2025-05-29] MEDS: LEVSIN 0.25 MG PO (15:15)
[2025-05-29 16:01] VITALS: BP 130/71
--- NOTE | 2025-05-29 16:50 | W.PN.ENT ---
Today's Communication
-
see above
Impression / Plan
-
Pt's symptoms most likely due to GERD.
Would treat with bid dosage of Protonix and discharge home if there are no other concerns
Subjective Data
-
Pt seen and full consult dictated.
Consultation provided for chronic cough, excessive salivation and possible epiglotitis.
Objective Data
-
Vital Signs
Temp Pulse Resp BP Pulse Ox
98.3 F 65 16 130/71 98
05/29/25 16:01 05/29/25 16:01 05/29/25 16:01 05/29/25 16:01 05/29/25 16:01
Intake & Output
05/28/25 05/29/25 05/30/25
06:59 06:59 06:59
Intake:
Oral fluids 220 / 220 220 / 460 240 / 240
IV fluids (Total) 600 / 600 1000 / 1000
Other:
Number of approximated MODERATE 2 2
amounts of urine
Lab Results
05/27/25 07:33
05/29/25 06:35
Calcium 9.2 mg/dl (8.4-10.2) 05/29/25 06:35
Magnesium 2.3 mg/dl (1.6-2.3) 05/27/25 07:33
Total Bilirubin 0.7 mg/dl (0.2-1.3) 05/29/25 06:35
AST 33 U/L (14-36) 05/29/25 06:35
ALT 212 U/L (0-35) H 05/29/25 06:35
Alkaline Phosphatase 75 U/L (38-126) 05/29/25 06:35
Lipase 260 U/L (23-300) 05/27/25 07:33
Physical Exam
-
Laryngoscopy performed.
No evidence of infection or mass but findings c/w reflux laryngitis.
[2025-05-29] MEDS: LOVENOX 40 MG SC (17:42)
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
[2025-05-29] MEDS: ATROPINE SULFATE 1% DROPS 2 DROP SL (20:32)
[2025-05-29] MEDS: TESSALON PERLES PO (22:14)
[2025-05-29] MEDS: PEPCID 40 MG PO (22:14)
[2025-05-29 23:35] VITALS: BP 111/88
[2025-05-30 07:35] VITALS: BP 136/92
[2025-05-30] MEDS: ZOFRAN 4 MG IV (08:16)
[2025-05-30] MEDS: NSS (PRESERVATIVE FREE) 10 ML IV (08:18)
[2025-05-30] MEDS: TESSALON PERLES 200 MG PO (08:18)
[2025-05-30] MEDS: PROTONIX IV 40 MG IV (08:18)
[2025-05-30] MEDS: ATROPINE SULFATE 1% DROPS 2 DROP SL (08:23)
--- NOTE | 2025-05-30 10:15 | W.PN.HOSP.TC ---
Today's Communication/Plan
-
dc home
OP GI f/u
cont ppi
Assessment / Plan
Assessment / Plan
#Hypersalivation ?due to GERD
#Suspected GERD
#Chronic cough due to above
Start patient on PPI IV twice daily as with recent steroids and antibiotic course
Monitor for symptoms
Tolerating diet per DC further fluids
started on atropine drops per pulm-cont on dc.
Esophagogram with Transient brief low-level tertiary contraction. Otherwise, normal peristalsis. Trace transient gastroesophageal reflux. No hiatal hernia, stricture, or obstruction. No radiographic evidence of esophagitis.
Pepcid added. Patient stated he was taking Carafate as prescribed by PCP in the past which did not help
ENT evaluated-symptoms due to GERD.
Tickborne illness workup ongoing. Blood parasite was negative
CT head negative
GI to also coordinate outpatient esophageal manometry/pH testing as outpatient.
#Suspected bronchospasm/laryngeal spasm possibly due to severe GERD
Now much improvement with steroids as outpatient will hold off on further systemic steroids for now
Check CT of the chest noted and no anatomical acute pathology noted
Daxa Sanders can consider Robitussin with codeine if needed
Speech okay for regular diet
Appreciate pulm input
#Transaminitis
Hepatitis panel negative
Possibility of elevation of liver enzymes due to recent steroids and antibiotic course
Ultrasound of the abdomen noted.
#Mild hyperkalemia
resolved.
#Leukocytosis likely secondary to steroids
Continue to trend CBC for now
Resolved
If spikes fever then check COVID, UA, blood cultures
#Solitary kidney
Monitor creatinine
DVT prophylaxis-Lovenox
Full code
More than 30 minutes spent in discharge including
Final examination of the patient
Summarizing hospital stay
Instructions for continuing care to all relevant caregivers
Preparation of discharge records, prescriptions, and referral forms
Total time spent (in minutes): 55
Anticipated Discharge: Today
Subjective/Interval History
-
Date of Service: May 30, 2025
taking atropine drops
having coughing episodes at times
VSS. On room air
Objective Data
-
Labs:
Laboratory Results
05/30/25
06:00
Sodium Pending
Potassium Pending
Chloride Pending
Carbon Dioxide Pending
BUN Pending
Creatinine Pending
Glucose Pending
Calcium Pending
Total Bilirubin Pending
AST Pending
ALT Pending
Alkaline Phosphatase Pending
Vital Signs:
Vital Signs
Temp Pulse Resp BP Pulse Ox
98.0 F 62 18 136/92 98
05/30/25 07:35 05/30/25 07:35 05/30/25 07:35 05/30/25 07:35 05/30/25 07:35
I&O
05/29/25 05/30/25 05/31/25
06:59 06:59 06:59
Intake Total 220 / 1460 2440 / 2440
Balance 220 / 1460 2440 / 2440
Physical Exam
-
General: Well Developed and No Apparent Distress
HEENT: Normocephalic, Atraumatic and Moist Mucous Membranes
Respiratory: Clear to Auscultation
Cardiac: Regular Rhythm and S1/S2; Negative Murmur, Rub or Gallop
GI: Soft, Nontender, Nondistended and Normal Bowel Sounds; Negative Organomegaly
Rectal: Deferred by Provider
Musculoskeletal: No Clubbing, No Cyanosis and No Edema
Skin: Negative Rash
Neuro: Awake, Alert, Oriented, AO x 3, No Motor Deficits and Nonfocal/Grossly Intact
--- NOTE | 2025-05-30 10:21 | W.DCSUMMARY ---
Discharge Summary
Discharge Data
Date of Admission: 05/28/25
Date of Discharge: 05/30/25
-
Pending Results: No
Hospital Course
70-year-old female no significant past medical history is presenting to the hospital with complaint of coughing episodes which started 3 weeks ago associated with hypersalivation. Patient states during this episode she feels like she is unable to
take deep breaths and get out. States the episodes are worsened with laughing or talking and improved after eating. As outpatient patient eval by primary doctor 3 times and received courses of antibiotics and high-dose steroids. Was also started
on Pepcid and Carafate. Patient was found to have transaminitis on admission underwent abdominal ultrasound. No acute endocrine abnormality was notified. Patient also underwent CT of the chest No significant acute abnormality identified in the
chest. Patient was started on PPI twice daily. IV fluid was started. Patient was eval by pulmonary, gastroenterology and ENT. Patient underwent esophagogram Transient brief low-level tertiary contraction. Otherwise, normal peristalsis. Trace
transient gastroesophageal reflux. No hiatal hernia, stricture, or obstruction. No radiographic evidence of esophagitis. Patient was also added on Pepcid. Bronchodilators were started without much improvement and lungs were clear to auscultation
and thus it was discontinued. Patient was also on atropine drops. Patient side of similar symptomology in the past when she was infected with parasite and the blood parasite was negative over here. Lyme disease and Rickettsia was also added and
pending however no tick bites and no symptomology. CT of the head was negative for acute pathology. No neurological deficit. Patient vital signs were stable throughout hospitalization. Patient was stable on room air. Patient was tolerating
diet. Did not have difficulty with diet. Patient was recommended continue with PPI, Pepcid, atropine drops and to follow-up with gastroenterology for outpatient esophageal manometry and pH testing. All patient questions were answered and she was
agreeable amenable to discharge planning.
Discharge Plan
-
Patient Disposition: Home (Routine Discharge)
Discharge Diagnosis/Procedures: Hypersalivation
GERD
Chronic cough
Transaminitis
Condition: Fair
Diet: Regular
Activity: As tolerated
Driving Restrictions: As prior to admission
Referrals:
Ze Kim MD [Active, Gastroenterology] - in less than 1 week
Referral Note: Follow up with office for esophageal manometry/pH testing schedule
Hussein Brice MD [Family Provider, [facility]] - in less than 1 week
Referral Note: Follow-up Lyme studies and Rickettsia results with primary doctor
Prescriptions:
New
atropine 1 % Drops
2 drp sublingual Q4HPRN PRN (Reason: salivation) Qty: 5 0RF
famotidine 40 mg Tablet
40 mg PO HS 30 Days Qty: 30 0RF
benzonatate 100 mg Capsule
200 mg PO TID Qty: 30 0RF
pantoprazole [Protonix] 40 mg tablet,delayed release (DR/EC)
40 mg PO BID Qty: 60 0RF
Discharge Orders:
Discharge Patient (As Directed); Ordered 05/30/25
Ordered By: Ron Liu
Discharge Date and Time
Discharge Date/Time: 05/30/25 11:53
Print Language: TUNISIAN
--- NOTE | 2025-05-30 10:28 | CM ---
CM reviewed chart, patient seen bedside, for discharge today. Patient denies needs, confirms transportation home. IMM verbally reviewed, patient declines need for copy, placed in chart. CM will continue to follow for all discharge planning needs.
Plan; home no needs
[2025-06-01 14:22] LABS: Lyme Disease DNA by PCR Not Detected; Lyme Source Serum
[2025-06-02 08:27] LABS: RMSF IgG Antibodies <1:64 (<1:64); RMSF IgM Antibodies <1:64 (<1:64)
== END 2025-05-30 11:53 | disposition home or self-care (01) | DRG 156 ==
LOC: 4 WEST ACU 16:09
PROVIDERS: Emergency Medicine; ADMITTING PHYSICIAN Hospitalist; CONSULT PHYSICIAN Internal Medicine Gastroenterology; CONSULT PHYSICIAN Otolaryngology; EMERGENCY PHYSICIAN Emergency Medicine; FAMILY PHYSICIAN Family Medicine; OTHER PHYSICIAN Internal Medicine Critical Care Medicine
DX: K11.7 Disturbances of salivary secretion (principal); K21.9 Gastro-esophageal reflux disease without esophagitis; J98.01 Acute bronchospasm; E87.5 Hyperkalemia; T38.0X5A Adverse effect of glucocorticoids and synthetic analogues, initial encounter; J04.0 Acute laryngitis; K82.8 Other specified diseases of gallbladder; Z52.4 Kidney donor; Z79.899 Other long term (current) drug therapy; Z90.5 Acquired absence of kidney
CPT/HCPCS: 70450; 71250; 74019; 74221; 76380; 76700; 80053; 83690; 83735; 84484; 85025; 86704; 86709; 86757; 86803; 87015; 87207; 87328; 87329; 87340; 87476; 92610; 93005; 94640; 99285